=== PATIENT | female | born 1965 | race Caucasian/White ===

== ENCOUNTER 2022-03-17 08:56 | Emergency (ER) | payer MEDICARE, MEDICAID ==
[~2022-03-17] VITALS: Ht 165.1 cm; Wt 62.0 kg
[2022-03-17 10:16] VITALS: BP 122/71
== END 2022-03-17 11:18 | disposition home or self-care (01) ==
LOC: ER 09:17
DX: Z13.9 Encounter for screening, unspecified (principal); Z88.7 Allergy status to serum and vaccine; Z88.8 Allergy status to other drugs, medicaments and biological substances
CPT/HCPCS: 99283